=== PATIENT | female | born 1965 | race Caucasian/White ===

== ENCOUNTER 2016-07-10 14:12 | Emergency (ER) | payer SELFPAY ==
[2016-07-10] MEDS ORDERED: SODIUM CHLORIDE 0.9% (FLUSH) 10 ML SYG IV PRN (14:24)
[2016-07-10] MEDS ORDERED: IPRATROPIUM/ALBUTEROL 3 ML VIAL INH ONE (14:24)
--- NOTE | 2016-07-10 14:29 | ED.PDOC ---
History of Present Illness - General Chief Complaint: Chest Pain/CO Stated Complaint: COUGH/SOB Time Seen by Provider: 07/10/16 14:23 Source: patient Exam Limitations: no limitations Additional Information: PT REPORTS 1 DAY HISTORY OF COUGH AND PLEURITIC CHEST PAIN PRECEEDED BY 4 DAYS OF NAUSEA, VOMITING, AND DIARRHEA. PT STATES SHE FELT SHE WAS IMPROVING UNTIL THIS AM WHEN SHE AWOKE FEELING WORSE. - History of Present Illness Timing/Duration: 24 hours Severity: moderate Improving Factors: other - SITTING UPRIGHT Worsening Factors: other - LAYING FLAT AND LAYING ON SIDES Associated Symptoms: chest pain, cough, nausea/vomiting, shortness of breath Allergies/Adverse Reactions: Allergies Morphine Allergy (Verified 07/10/16 14:36) Tetracycline Allergy (Verified 07/10/16 14:36) Home Medications: Ambulatory Orders Albuterol Inhaler [Ventolin Hfa Inhaler] 2 puff INH Q4HR PRN #1 inh 07/10/16 Benzonatate Perles [Tessalon Perles] 200 mg PO TID PRN #30 cap 07/10/16 Glipizide 10 mg PO DAILY 07/10/16 Levofloxacin [Levaquin] 750 mg PO DAILY #5 tab 07/10/16 Metformin HCl 1,000 mg PO DAILY 07/10/16 Promethazine Tab [Phenergan Tablet] 25 mg PO Q6H PRN #15 tab 07/10/16 Review of Systems - Review of Systems Constitutional: Denies: chills, fever EENTM: Denies: nose congestion, throat pain Respiratory: States: see HPI, cough, short of breath Cardiology: States: see HPI, chest pain. Denies: palpitations Gastrointestinal/Abdominal: States: see HPI, diarrhea, nausea, vomiting. Denies : abdominal pain Genitourinary: Denies: dysuria, frequency Musculoskeletal: Denies: joint pain, muscle pain Skin: Denies: change in color, lesions Neurological: Denies: headache, paresthesia Endocrine: States: no symptoms reported Hematologic/Lymphatic: States: no symptoms reported Past Medical History (General) - Patient Medical History Hx Stroke: No Hx Asthma: No Hx Cardiac Disorders: No Hx Hypertension: No Hx Diabetes: Yes Hx Gastroesophageal Reflux: No Surgical History: cholecystectomy, tonsillectomy Other Surgeries:: X 3 - Social History Hx Tobacco Use: No Hx Alcohol Use: No Family Medical History - Family History Grandparents Family History: Unknown Physical Exam - Physical Exam General Appearance: Alert, Well Developed, Well Groomed Ears, Nose, Throat: hearing grossly normal, normal ENT inspection Neck: full range of motion, normal inspection Respiratory: lungs clear, normal breath sounds, no respiratory distress, no accessory muscle use Cardiovascular/Chest: regular rate, rhythm, no murmur, tachycardia Gastrointestinal/Abdominal: non tender, soft Back Exam: normal inspection Extremity: normal range of motion, normal inspection Neurologic: normal mood/affect, oriented x 3 Skin Exam: warm/dry, pallor Progress - Progress Progress: 07/10/16 16:34 PT RESTING COMFORTABLY AFTER 2L IV NS. PT ABLE TO TOLERATE PO WHILE IN THE ED. LABS AND DIAGNOSTIC STUDIES REVIEWED. WILL START PT ON ABX AND ANTINAUSEA MED. PT INSTRUCTED TO RETURN IF SYMPTOMS DO NOT IMPROVE OR WORSEN. - EKG/XRAY/CT EKG: Tachy - 109, nonspecific ST T wave Chg Comments: NL INTERVALS, NL AXIS, NO OLD EKG FOR COMPARISON Xray Comments: CXR: NEGATIVE PER RADIOLOGY Departure - Departure Clinical Impression: Gastroenteritis, Acute bronchitis, Fever Time of Disposition: 16:56 Disposition: Discharge to Home or Self Care Condition: Good Departure Forms: ED Discharge - Pt. Copy, Patient Portal Self Enrollment Diet: bland diet Activity: increase activity as tolerated Referrals: [facility] [Provider Group] - 1-2 Weeks Prescriptions: Albuterol Inhaler [Ventolin Hfa Inhaler] 2 puff INH Q4HR PRN #1 inh PRN Reason: Shortness Of Breath/Wheezing Levofloxacin [Levaquin] 750 mg PO DAILY #5 tab Promethazine Tab [Phenergan Tablet] 25 mg PO Q6H PRN #15 tab PRN Reason: Nausea/Vomiting Benzonatate Perles [Tessalon Perles] 200 mg PO TID PRN #30 cap PRN Reason: Cough Home Medications: Ambulatory Orders Albuterol Inhaler [Ventolin Hfa Inhaler] 2 puff INH Q4HR PRN #1 inh 07/10/16 Benzonatate Perles [Tessalon Perles] 200 mg PO TID PRN #30 cap 07/10/16 Glipizide 10 mg PO DAILY 07/10/16 Levofloxacin [Levaquin] 750 mg PO DAILY #5 tab 07/10/16 Metformin HCl 1,000 mg PO DAILY 07/10/16 Promethazine Tab [Phenergan Tablet] 25 mg PO Q6H PRN #15 tab 07/10/16
[2016-07-10] MEDS: SODIUM CHLORIDE 0.9% 1000ML 1,000 ML IVS PRN ×2 (14:30→14:56)
[2016-07-10] MEDS ORDERED: SODIUM CHLORIDE 0.9% 1000ML 1,000 ML IVS ONE (15:14)
[2016-07-10] MEDS ORDERED: levoFLOXacin 500 MG TAB PO ONE (16:32)
[2016-07-10] MEDS ORDERED: ACETAMINOPHEN 500 MG TAB PO ONE (16:33)
--- NOTE | 2016-07-10 16:54 | RAD ---
EXAM DESCRIPTION: XR CHEST 1 VIEW CLINICAL HISTORY: SOB, COUGH COMPARISON: None. FINDINGS: Cardiac silhouette is within normal limits. There is no focal parenchymal or pleural disease. There is no acute osseous process visualized. IMPRESSION: No evidence of acute cardiopulmonary disease. Electronically signed by: Miguel Taylor 07/10/2016 16:53
[2016-07-10 17:41] VITALS: O2SAT 98
[2016-07-10 17:45] VITALS: BP 128/73; TEMP 100
== END 2016-07-10 17:35 | disposition home or self-care (01) ==
LOC: ER 14:12
DX: J20.9 Acute bronchitis, unspecified (principal); R50.81 Fever presenting with conditions classified elsewhere; K52.9 Noninfective gastroenteritis and colitis, unspecified; Z88.6 Allergy status to analgesic agent; Z88.3 Allergy status to other anti-infective agents; Z79.899 Other long term (current) drug therapy; E11.9 Type 2 diabetes mellitus without complications
CPT/HCPCS: 71010; 80053; 83880; 85025; 85379; 94640; 96360; 99284; J7030; J7620